=== PATIENT | male | born 1940 | race African-American/Black ===

== ENCOUNTER 2017-05-21 19:42 | Emergency (ER) | payer OTHER ==
--- NOTE | ~2017-05-21 | CR72 ---
[facility] A Service of [facility] RADIOLOGY TEXT RESULTS PATIENT: ISAAC YATES LOCATION: [facility] : 40 UNIT #: [id number] AGE: [address]: Jael Anne MD SEX: M ORDER DR: [id number] [facility] [address] [place], [place] [address] [id number] E MR#: [id number] Acc #: [id number] NAME: ISAAC YATES. : 1940 SEX: M STUDY DATE/TIME: 05/21/2017 20:43 UNIT: [facility] ROOM: STUDY DESCRIPTION: CR Chest Single View Portable Attending Physician: Jael Anne M.D. Ordering Physician: Jael Anne M.D. Primary Care Physician: Uriel Silveira Jr., M.D. MEDICAL IMAGING REPORT This report is preliminary unless electronic signature is present EXAM Portable chest, 05/21/2017. HISTORY 77-year-old male with shortness of air and congestion worsening today. COMPARISON Chest, 01/04/2015. FINDINGS Frontal chest demonstrates a questionable small right pleural effusion. There are patchy opacities noted in the right mid and lower lung field and pneumonia is not excluded. There is slight shift of the mediastinum to the right. A right-sided postobstructive process is not completely excluded and further characterization with chest CT may be considered. Left lung clear. No pneumothorax. IMPRESSION Slight shift of the mediastinum to the right. There is a suspected small right pleural effusion with patchy pulmonary opacities in the right mid and lower lung field. Findings may represent pneumonia. A post obstructive process is not completely excluded and further characterization with contrast enhanced chest CT may be considered. Dictated by... Humberto Ramírez M.D. THIS IS AN ELECTRONICALLY VERIFIED REPORT Humberto Ramírez M.D. at 05/22/2017 5:11 PM PETRA/ciara [facility] A Service of [facility] RADIOLOGY TEXT RESULTS PATIENT: ISAAC YATES LOCATION: [facility] : 40 UNIT #: [id number] AGE: [address]: Jael Anne MD SEX: M ORDER DR: TD: 05/22/2017 09:50 JOB #: [id number] MEDICAL IMAGING REPORT Page 1 of 1 COPY
--- NOTE | ~2017-05-21 | CT4 ---
[facility] A Service of [facility] & [facility] RADIOLOGY TEXT RESULTS PATIENT: ISAAC YATES LOCATION: [facility] : 40 UNIT #: [id number] AGE: [address]: Jael Anne MD SEX: M ORDER DR: [id number] [facility] [address] [place], [place] [address] [id number] E MR#: [id number] Acc #: [id number] NAME: ISAAC YATES. : 1940 SEX: M STUDY DATE/TIME: 05/21/2017 20:58 UNIT: [facility] ROOM: STUDY DESCRIPTION: CT Abd and Pelv Wo Cont Attending Physician: Jael Anne M.D. Ordering Physician: Jael Anne M.D. Primary Care Physician: Uriel Silveira Jr., M.D. MEDICAL IMAGING REPORT This report is preliminary unless electronic signature is present EXAM CT abdomen and pelvis HISTORY Abdominal cramping, short of air since 05/11/[address] of the abdomen and pelvis performed without administration of oral or intravenous contrast. This CT exam was performed with one or more of the following radiation dose reduction techniques: automatic exposure control, adjustment of mA and/or kV according to patient size, and iterative reconstruction. COMPARISON 07/02/2009 FINDINGS 2.0-3.0 mm noncalcified subpleural nodule left lower lobe adjacent to the major fissure image #2. 3.0-4.0 mm noncalcified pulmonary nodule left lower lobe image #16. I believe both of these nodules were present on the prior examination and are benign in nature. There is volume loss in the incompletely visualized right lung. Please correlate with history. There is a swirled area of parenchymal density subjacent to the posteromedial right lower lobe pleura. It measures 3.6 cm x 2.5 cm. Bronchovascular structures extending toward it have a swirled configuration and the appearance is most suggestive of so-called rounded atelectasis. Comparison with any more recent studies would be useful. There is underlying emphysema. There are some ill-defined increased linear interstitial markings in the visualized inferior right upper and middle lobes which may represent chronic change or minimal interstitial pneumonitis. There is no dense airspace disease. The heart is mildly enlarged. Extensive coronary arterial calcification. There is a small to STS. [facility] A Service of [facility] & [facility] RADIOLOGY TEXT RESULTS PATIENT: ISAAC YATES LOCATION: [facility] : 40 UNIT #: [id number] AGE: [address]: Jael Anne MD SEX: M ORDER DR: moderate volume of fluid in the abdomen and pelvis. The patient has a peritoneal dialysis catheter in the pelvis and the fluid is presumed to be peritoneal dialysate. The liver shows segment 2 cysts, the largest measuring 1.8 cm in diameter increased from prior study when it measured 9.0 mm in diameter. There is a segment 6 cyst measuring 1.0 cm in diameter. It measured well under 1.0 cm on prior study. There are calcified granulomata in the liver but no clearly suspicious abnormality. The gallbladder is unremarkable. The spleen contains calcified granulomata. The pancreas and adrenal glands are unremarkable. Renal atrophy bilaterally. New compared to prior study. Bilateral renal cysts. A dominant left renal cyst exophytic from the upper pole currently measures about 2.1 cm in maximum diameter, previously 3.0 cm. It does contain a mural calcification. On the right there is a dominant upper pole cyst which is new and measures about 2.5 cm in diameter. There is no suspicious renal parenchymal finding. There is no perinephric inflammatory change. CT PELVIS: No inguinal adenopathy. Urinary bladder decompressed. Peritoneal dialysis catheter as noted. There is no pelvic or retroperitoneal adenopathy. Distal esophagus and stomach notable for a small hiatal hernia. There is some fluid extending above the diaphragm favored to be peritoneal dialysate fluid. The hiatal hernia is otherwise not significantly changed from 2009. Remainder of stomach unremarkable. Small bowel, appendix notable for a small appendicolith in the proximal appendix with no periappendiceal inflammatory change. Pancolonic diverticulosis without localized diverticular inflammation or wall thickening. No colonic dilatation. There is some haziness and stranding in the omental fat. Mild stranding in the mesenteric fat. This is probably a reflection of the presence of peritoneal dialysis fluid. Associated inflammatory change from peritonitis could be considered in the appropriate clinical context. There is no air in the abdominal or pelvic cavity. Extensive vascular calcification. Multilevel degenerative change in the spine. Degenerative grade 1 anterolisthesis L5 on S1 probably not significantly changed from prior study. No acute-appearing bony abnormality. IMPRESSION 1. There is a peritoneal dialysis catheter in place extending into the pelvis. There is a small to moderate volume of fluid in the abdomen and pelvis presumed to be peritoneal dialysate. Please correlate clinically. There is some haziness and stranding in the omental and mesenteric fat which is presumed to reflect the presence of peritoneal dialysis fluid. In the appropriate clinical context, inflammatory change from associated peritonitis might be considered. Weight should be given the clinical assessment. There is no pneumoperitoneum. 2. Renal atrophy, new compared to 2009. Bilateral renal cysts. No suspicious renal findings. 3. Pancolonic diverticulosis without localized inflammatory change. [facility]. [facility] A Service of [facility] RADIOLOGY TEXT RESULTS PATIENT: ISAAC YATES LOCATION: [facility] : 40 UNIT #: [id number] AGE: [address]: Jael Anne MD SEX: M ORDER DR: 4. There is a small appendicolith in the proximal appendix but there is no appendiceal inflammatory change. 5. Small hiatal hernia. A small amount of fluid has extended into the hiatal hernia. Hiatal hernia otherwise unchanged from 2009. 6. Emphysema. There are two subcentimeter noncalcified nodules in the left lower lobe which do not appear significantly changed from 2009 and are felt to be benign in nature. 7. There is a new area of rounded subpleural density in the posterior-inferior right lower lobe measuring 3.6 cm x 2.5 cm transversely. Swirled configuration of bronchovascular structures extending toward it with an appearance most consistent with rounded atelectasis. Neoplastic lesion felt unlikely given its overall configuration. Comparison with any studies in the interval from 2009 recommended. In the absence of such studies, this finding, though strongly favored to be benign, could be further characterized with CT/PET scan. At the very least, short interval followup would be recommended to confirm short-term stability. 8. There is mild linear interstitial prominence in the visualized inferior right upper and middle lobes which may represent chronic change or minimal interstitial pneumonitis. Again, weight should be given the clinical assessment. 9. Mild cardiac enlargement. 10. Extensive atherosclerotic arterial calcifications. 11. Degenerative anterolisthesis L5 on S1. No acute bony abnormality. Dictated by... Nasir Post M.D. THIS IS AN ELECTRONICALLY VERIFIED REPORT Nasir Post M.D. at 05/24/2017 1:22 PM [place] TD: 05/22/2017 11:23 JOB #: [id number] MEDICAL IMAGING REPORT Page 1 of 1 COPY
--- NOTE | ~2017-05-21 | EKG ---
PATIENT: ISAAC YATES UNIT #: [id number] Ventricular Rate: 93 BPM Atrial Rate: 93 BPM P-R Interval: 240 ms QRS Duration: 146 ms Q-T Interval: 386 ms QTC Calculation(Bezet): 479 ms Calculated R Firestone: -115 degrees Calculated T Firestone: 33 degrees Diagnosis Line: Suspect arm lead reversal, interpretation Diagnosis Line: assumes no reversal Diagnosis Line: Sinus rhythm with 1st degree A-V block Diagnosis Line: Non-specific intra-ventricular conduction block Diagnosis Line: Right ventricular hypertrophy Diagnosis Line: Anterolateral infarct (cited on or before Diagnosis Line: 21-MAY-2017) Diagnosis Line: Abnormal ECG Diagnosis Line: When compared with ECG of 02-MAY-2014 06:38, Diagnosis Line: Vent. rate has increased BY 37 BPM Diagnosis Line: Non-specific intra-ventricular conduction block Diagnosis Line: has replaced Right bundle branch block Diagnosis Line: Questionable change in initial forces of Lateral Diagnosis Line: leads Diagnosis Line: Confirmed by BAKARI CAMPBELL MD ([id number]) on Diagnosis Line: 05/22/2017 2:02:06 PM INTERPRETING MD: ADRIAN PAINTER
[~2017-05-21 19:42] MED LIST: ALPHAGAN P5 ML OP; AMLODIPINE BESY10 MG PO; ASPIRIN PO; CYCLOSPORINE100 M1 PO; DEMADEX PO; FLOMAX0.4 MG PO; IMDUR-ER30 MG PO; KLOR-CON PO; METOPROLOL SUCC50 MG PO; PRAVACHOL20 MG PO; PREDNISONE5 M1 PO; TYLOX 5/500 CAP1 CAP PO; ZAROXOLYN5 MG PO; ZESTRIL40 MG PO
[2017-05-21 20:32] LABS: ARTERIAL BLOOD GAS CARBOXY HB 0.8 %sat (0.0-9.0); ARTERIAL BLOOD GAS HCO3 23.6 mmol/L; ARTERIAL BLOOD GAS MET HB 0.6 %sat (0.0-2.0); ARTERIAL BLOOD GAS PCO2 30.9 mmHg (35.0-45.0); ARTERIAL BLOOD GAS pH 7.492 (7.350-7.450)
[2017-05-21 20:33] LABS: ARTERIAL BLOOD GAS ALLEN TEST NORMAL; ARTERIAL BLOOD GAS ART SITE RIGHT RADIAL; ARTERIAL BLOOD GAS PO2 72.7 mmHg (80.0-100); ARTERIAL DRAW? YES
[2017-05-21 20:49] LABS: BASOPHIL# 0.1 X10e3 (0-0.3); BASOPHIL% 0.5 % (0-2.5); EOSINOPHIL# 0.1 X10e3 (0-0.7); EOSINOPHIL% 1.2 % (0.0-7.0); HEMATOCRIT 38.7 % (38.0-50.0); HEMOGLOBIN 12.4 gm/dL (13.0-16.0); LYMPHOCYTE% 8.8 % (17.0-45.0); MEAN CELL VOLUME 91.6 FL (83-96); MEAN CORPUSCULAR HEMOGLOBIN 29.3 PG (28-34); MEAN PLATELET VOLUME 7.9 FL (6.5-11.5); MONOCYTE# 0.6 X10e3 (0-1.0); MONOCYTE% 4.7 % (3.0-12.0); NEUTROPHIL% 84.8 % (40-75); PLATELET COUNT 204 X10e3 (140-420); RED BLOOD COUNT 4.22 X10e (3.90-5.60); RED CELL DISTRIBUTION WIDTH 14.5 % (11.0-15.5); WHITE BLOOD COUNT 11.8 X10e3 (4.0-10.5)
[2017-05-21 20:51] LABS: DIFF IND NO
[2017-05-21 21:01] LABS: POC - TROPONIN <0.05 ng/mL (<=0.05)
[2017-05-21 21:04] LABS: PARTIAL THROMBOPLASTIN TIME 24.5 SECONDS (23.5-31.3); PROTHROMBIN TIME (PATIENT) 10.4 SECONDS (10.0-11.7)
[2017-05-21 21:19] LABS: ALBUMIN SERUM 3.3 g/dL (3.5-5.0); BILIRUBIN, DIRECT 0.2 mg/dL (0.0-0.2); BILIRUBIN,INDIRECT 0.5 mg/dL (0.0-0.9); BILIRUBIN,TOTAL 0.7 mg/dL (0.2-2.0); BUN/CREATININE RATIO 2.39; CALCIUM SERUM 8.9 mg/dL (8.4-10.2); CREATININE SERUM 13.8 mg/dL (0.6-1.4); GLOM FILT RATE Estimated 3.5 mL/min (>60); MAGNESIUM 2.2 mg/dL (1.6-3.0); PHOSPHOROUS 2.5 mg/dL (2.5-4.6); POTASSIUM 3.7 mmol/L (3.5-5.1); PROTEIN TOTAL SERUM 7.6 g/dL (6.0-8.3)
[2017-05-21 22:41] LABS: POC - CKMB 1.6 ng/mL (0.0-7.9); POC - TROPONIN <0.05 ng/mL (<=0.05)
== END 2017-05-22 03:30 | disposition short-term general hospital (02) ==
LOC: CED 19:42
PROVIDERS: Emergency Medicine
DX: I12.0 Hypertensive chronic kidney disease with stage 5 chronic kidney disease or end stage renal disease (principal); N18.6 End stage renal disease; J18.9 Pneumonia, unspecified organism; Z99.2 Dependence on renal dialysis; Z79.899 Other long term (current) drug therapy
CPT/HCPCS: 36415; 36600; 71010; 74176; 80048; 80076; 82553; 82803; 82947; 83605; 83735; 84100; 84484; 85025; 85610; 85730; 87040; 93005; 99285; J1580; J2270; J2405; J3370